=== PATIENT | female | born 1930 | race African-American/Black ===

== ENCOUNTER 2018-10-09 16:18 | Emergency (ER) | payer OTHER, BC ==
[~2018-10-09] VITALS: Ht 160 cm; Wt 61.2 kg
[~2018-10-09 16:18] MED LIST: HYDROCODONE-AP1 EAC6 PO; IBUPROFEN 400400 M2 PO
[2018-10-09 16:28] VITALS: BP 199/91
== END 2018-10-09 19:08 | disposition home or self-care (01) ==
LOC: ER 16:18
DX: S52.571A Other intraarticular fracture of lower end of right radius, initial encounter for closed fracture (principal); S52.611A Displaced fracture of right ulna styloid process, initial encounter for closed fracture; Z87.891 Personal history of nicotine dependence; W10.9XXA Fall (on) (from) unspecified stairs and steps, initial encounter; Y93.01 Activity, walking, marching and hiking; Y92.89 Other specified places as the place of occurrence of the external cause; Y99.8 Other external cause status

== ENCOUNTER 2018-10-10 09:15 | Emergency (ER) | payer OTHER, BC ==
[~2018-10-10] VITALS: Ht 160 cm; Wt 63.5 kg
[2018-10-10 11:20] VITALS: BP 177/70
== END 2018-10-10 11:20 | disposition home or self-care (01) ==
LOC: ER 09:15
DX: S52.571A Other intraarticular fracture of lower end of right radius, initial encounter for closed fracture (principal); S52.611A Displaced fracture of right ulna styloid process, initial encounter for closed fracture; Z87.891 Personal history of nicotine dependence; W18.39XA Other fall on same level, initial encounter; Y92.89 Other specified places as the place of occurrence of the external cause; Y93.89 Activity, other specified; Y99.8 Other external cause status